=== PATIENT | male | born 1940 | race Caucasian/White ===

== ENCOUNTER → 2017-08-15 | Outpatient (CLI) | payer OTHER, BC ==
[~2017-08-15] MED LIST: NORCO 5-325 TA1 EACH PO; PENICILLIN VK500 M1 PO; PREDNISONE 20 M20 M1 PO; VENTOLIN HFA 1818 GM INH; ZPAK PO
== END ==
LOC: MRI 10:17
DX: M51.27 Other intervertebral disc displacement, lumbosacral region (principal); M51.26 Other intervertebral disc displacement, lumbar region; M47.896 Other spondylosis, lumbar region; M48.07 Spinal stenosis, lumbosacral region; R53.1 Weakness

== ENCOUNTER → 2017-08-22 | Outpatient (CLI) | payer OTHER, BC ==
[~2017-08-22] VITALS: Ht 180.3 cm; Wt 64.9 kg
[~2017-08-22] MED LIST changes: +GABAPENTIN 100100 MG PO
--- NOTE | ~2017-08-22 | HPC ---
[facility] [place] [address] PAIN MANAGEMENT CONSULTATION Name: RANDELL BOO Room #: REG SOULEYMANE McdowellTeofiloTejalTeofilo#: [id number] Admission: 08/22/17 Attend Phys: Tommy Luna DO Discharge: Date of : 40 Report #: [id number] THIS REPORT FOR: //name// CC: Tommy Waters MD DATE OF SERVICE: 08/22/2017 CHIEF COMPLAINT: Low back pain, right lower extremity pain and paresthesias. HISTORY OF PRESENT ILLNESS: As you know, the patient is a 76-year-old male who began experiencing right low back pain, right lower extremity pain with paresthesias, presented on 08/09/2017. The patient denies specific injury or trauma that may have led to symptom development. The patient states that he was in his normal state of health on 08/09/2017 where he began to experience increasing low back pain, which then began to radiate down the leg. The patient sought evaluation through his primary care physician, Dr. Ventura Waters, who referred the patient out for imaging studies as the patient was indicating not only he has increasing pain, but also a significant weight loss over a period of time without attempting to lose weight. There was concern the patient may have metastatic disease. Imaging did show no metastatic disease, but did reveal a disk protrusion at L5-S1 with impingement upon the left exiting L5 nerve root. The findings were such that the patient was then referred to our clinic for evaluation to address his 10/10 pain. The patient states that he is unable to walk or do his daily activities due to ongoing pain issues. The patient today, describes the pain as burning, shooting, cramping, aching, crushing, pulling, gnawing, throbbing, sharp, stabbing, tender, numbness and tingling. He states his pain is continuous, but with rhythmic increases in pain. He places pain score 10/10, daily average at 10/10, worst pain has been 10/10. The patient states standing, walking or doing any activities exacerbate symptoms, change in position tends to improve pain. The patient has been referred to our service due to inability to ambulate secondary to lumbar radiculopathy and the displacement of the lumbar intervertebral disk at the L5-S1 level. PAST MEDICAL HISTORY: None. PAST SURGICAL HISTORY: None. SOCIAL HISTORY: The patient denies tobacco, alcohol, IV or illicit drug use. He is retired, retired years ago. He is not receiving workmen's compensation nor is he trying to obtain disability benefits. He is not in litigation in regards to his pain. The patient indicates he is the sole provider to his who is disabled due to illnesses. He is unaccompanied at today's visit. [address] [address] PAIN MANAGEMENT CONSULTATION Name: RANDELL BOO Frieda Room #: REG ROXIJerry Douglas#: [id number] Admission: 08/22/17 Attend Phys: Tommy Luna DO Discharge: Date of : 40 Report #: [id number] REVIEW OF SYSTEMS: Positive for weight loss, decrease in appetite, fatigue and weakness, wearing corrective eyewear, sore throat, voice changes, shortness of breath with walking or lying flat, asthma, wheezing, loss of appetite, changes in bowel movements, nausea, frequent urination, nocturia, change of force or stream urination, incontinence and dribbling to urine, numbness and tingling sensations, history of transient ischemic attack, depression, low back pain and lower extremity pain. All other review of systems negative per 12-point review of systems, and those listed in history of present illness. Pain impact score 60 out of 70 indicating severe near complete interference of daily activities secondary to pain. ALLERGIES: NO KNOWN DRUG ALLERGIES. CURRENT MEDICATIONS: Gabapentin 100 mg t.i.d., hydrocodone 5/325 one tab every 4 hours p.r.n. for pain. IMAGING: MRI lumbar spine obtained 08/15/2017 shows at L4-L5 circumferential disk bulge, slight posterior paracentral disk protrusion, diffuse osteophyte, severe ligamentum flavum hypertrophy, severe facet hypertrophy, thecal sac is reduced to 8 mm. Foraminal tapering noted with no obvious root impingement at L5-S1, diffuse disk bulge, small extrusion towards the left neural foramen causing left foraminal stenosis, facet hypertrophy, ligamentum flavum hypertrophy. There appears to be impingement upon the left L5 nerve root. PQRS: The patient has osteoarthritis. No rheumatoid arthritis. He is placing current pain score 10/10. He is not a fall risk, has not had a fall in the last 3 months. He is not on blood thinners. He is not treated for hypertension. He is not on any opioids. He has a low risk assessment for opioid dependency. His functional assessment pain impact score 60/70 indicating severe interference near complete. PHYSICAL EXAMINATION: VITAL SIGNS: Blood pressure 99/66, pulse 72, respiratory rate 16, unlabored. The patient is 98% on room air. Height 5 feet 11 inches tall, weight 143 pounds, BMI calculated 20.0. GENERAL: Well-developed, well-nourished, well-hydrated 76-year-old male who appears his stated age. He is placing current pain score 10/10. HEENT: He is deemed a good historian. LUNGS: Clear. No wheeze, rhonchi or rales. CARDIOVASCULAR: Regular. No appreciable gallop or rub. ABDOMEN: Soft, nontender, nondistended, normoactive bowel sounds. EXTREMITIES: Show no clubbing, no cyanosis, no edema. MUSCULOSKELETAL: Seated straight leg raising positive on the left. Supine straight leg raising positive on the left. Nabeel's test negative. [facility] [address] [place] [address] PAIN MANAGEMENT CONSULTATION Name: MONA BOODAMIEN Malave Room #: REG [facility].#: [id number] Admission: 08/22/17 Attend Phys: Tommy Luna DO Discharge: Date of : 40 Report #: [id number] Gaenslen's positive for axial back pain. Ankle clonus negative. Babinski is negative. Deep tendon reflexes are symmetrical, but diminished at the patella and Achilles. Gait is extremely antalgic favoring left lower extremity over right. The patient has difficulty with standing due to pain. Lumbar provocation testing is met with increased pain, but no radiation of symptoms. ASSESSMENT: 1. Symptomatic lumbar radiculopathy. 2. Displacement of lumbar intervertebral disk with radiculopathy. 3. Lumbosacral spondylosis with radiculopathy. 4. Foraminal stenosis of lumbar spine. 5. Facet arthropathy of lower lumbar spine. PLAN: 1. The patient has been referred to our service for suspected lumbar radiculopathy. Imaging of the lumbar region shows changes at the L5-S1 level consistent with the patient's lumbar radicular symptoms with L5 left lumbar distribution of pain. We discussed with the patient the findings on the MRI and how they correlate with his symptoms. We took over 25 minutes of time discussing the MRI findings and how they correlate to the symptoms. We used a plastic modeling and digital modeling to assist patient's understanding. After this very long discussion, we discussed the treatment options that are available for lumbar radicular symptoms such as the patient's presentation. We discussed physical therapy, stretching exercise, core strengthening. We discussed medication management with escalating the dose of his gabapentin, which is at extremely low dose at this time. We discussed possible addition of medication in conjunction with increasing gabapentin. We discussed epidural injections for which the patient was referred to our services and finally surgical options. After reviewing the risks and benefits of all proposed treatment options, the patient chose to undergo lumbar epidural injection under fluoroscopic guidance. The patient was advised risks and benefits of a lumbar epidural injection. These risks include but are not necessarily limited to bleeding, bruising, infection, worsening pain, no relief of pain, also risk of temporary or permanent muscle weakness, temporary or permanent nerve damage, possible paralysis and . The patient states understood and wished to proceed. 2. No medication changes made at today's visit. We discussed multiple changes possible, but made no changes today. The patient wishes to determine how the epidural works before he decides to look towards medication options. We will discuss this at followup visit. 3. The patient will return to our clinic in 3 weeks. At that time, review efficacy of today's epidural injection and determine next in a series of epidural injections might be necessary. 4. We wish to thank Dr. Waters for the referral of patient to our clinic. We [address] [place] [address] PAIN MANAGEMENT CONSULTATION Name: RANDELL BOO Room #: REG SOULEYMANE Douglas#: [id number] Admission: 08/22/17 Attend Phys: Tommy Luna DO Discharge: Date of : 40 Report #: [id number] will keep you apprised of his response to treatment as we address lumbar radicular symptoms. Again, we wish to thank you for the opportunity to see this patient in consultation. PROCEDURE NOTE: DESCRIPTION OF PROCEDURE: L5-S1 paramedian epidural steroid injection under fluoroscopic guidance. This is the first procedure of the first series that the patient is undergoing. After obtaining written consent, the patient was taken back to the fluoroscopy suite, placed in a prone position with pillow under the abdomen to decrease lumbar lordosis. The skin overlying the lumbosacral area was then prepped and draped in aseptic fashion. The L5-S1 vertebral interspace was then identified by AP fluoroscopy. The skin and subcutaneous tissue overlying the target site of injection was anesthetized with 3 mL 1% lidocaine. A 20 gauge 3-1/2 inch Tuohy needle was then advanced under fluoroscopic guidance towards the epidural space using a midline approach. The epidural space was identified using loss of resistance to air technique. After negative aspiration for heme or cerebrospinal fluid, a total of 1 mL of Omnipaque was injected. A lumbar epidurogram was confirmed using both AP and lateral fluoroscopy. After negative aspiration for heme or cerebrospinal fluid, 5 mL of a solution containing 2 mL 40 mg per mL, 80 mg total triamcinolone, 3 mL lidocaine 1% was injected in increments. Contrast spread was noted posterior epidural space. The needle was then retracted approximately half way and needle tract flushed with 1 mL of lidocaine. Needle was then removed. There were no apparent sensory or motor deficits in the lower extremity following the procedure. A sterile bandage was placed over the injection site. The heart rate, pulse, oximetry and blood pressure were continuously monitored after the procedure. There were no apparent complications. The patient tolerated the procedure well and was carefully escorted to the recovery room in stable condition. There were no apparent complications. After meeting discharge criteria, the patient was then discharged home. By: [id number] Tommy Luna DO /nt
[2017-08-22 13:28] VITALS: BP 99/66
== END | disposition home or self-care (01) ==
LOC: PAIN 07:01
DX: M51.16 Intervertebral disc disorders with radiculopathy, lumbar region (principal); M47.27 Other spondylosis with radiculopathy, lumbosacral region; M48.061 Spinal stenosis, lumbar region without neurogenic claudication; M19.90 Unspecified osteoarthritis, unspecified site; Z79.899 Other long term (current) drug therapy; J45.909 Unspecified asthma, uncomplicated; Z86.73 Personal history of transient ischemic attack (TIA), and cerebral infarction without residual deficits; F32.9 Major depressive disorder, single episode, unspecified

== ENCOUNTER → 2017-08-30 | Outpatient (CLI) | payer OTHER, BC | LOC: CAT 06:59 | DX: M47.894 Other spondylosis, thoracic region (principal); M47.896 Other spondylosis, lumbar region; R63.4 Abnormal weight loss; M25.78 Osteophyte, vertebrae ==

== ENCOUNTER → 2017-09-12 | Outpatient (CLI) | payer OTHER, BC ==
[~2017-09-12] VITALS: Ht 180.3 cm; Wt 64.4 kg
--- NOTE | ~2017-09-12 | HPC ---
[facility] [address] [place] [address] PAIN MANAGEMENT CONSULTATION Name: RANDELL BOO Room #: REG SOULEYMANE MadsenTeofilo#: [id number] Admission: 09/12/17 Attend Phys: Tommy Luna DO Discharge: Date of : 40 Report #: [id number] THIS REPORT FOR: //name// CC: Tommy Waters MD DATE OF SERVICE: 09/12/2017 CHIEF COMPLAINT: Low back pain, right lower extremity pain and paresthesias. HISTORY OF PRESENT ILLNESS: As you know, the patient is a 76-year-old male, returning in followup visit to undergo next in the series of epidural injections. The patient reports pain level of 7-8/10. States pain is burning, aching, sharp in sensation, exacerbated with standing, walking and bending, improves with medications, sitting and previous epidural injection. The patient reports 50-60% improvement in overall pain with the epidural injection provided at last visit. Unfortunately, the patient became quite active and began doing a significant amount of yard work and exacerbated his pain. He had near complete resolution of his right lower extremity pain prior to his increased activity and yard work. He was doing well until that point. He returns today in followup visit requesting to undergo second in a series of epidural injections to address ongoing pain. ALLERGIES: No known drug allergies. CURRENT MEDICATIONS: Gabapentin and hydrocodone. SOCIAL HISTORY: The patient denies tobacco, alcohol, IV or illicit drug use. He is retired, retired years ago. He is unaccompanied today. IMAGING: No new imaging available. PQRS: The patient has osteoarthritis, no rheumatoid arthritis. He is placing his current pain score at 7/10. He is not a fall risk, has not fallen in the last 3 months. He is not on blood thinners. He is not treated for hypertension. He is not on opioids. His pain impact score today is 60/70. PHYSICAL EXAMINATION: VITAL SIGNS: Blood pressure 130/68, pulse 81, respiratory rate 16, unlabored. The patient is 98% on room air. Height 5 feet 11 inches tall, weight 142 pounds and BMI calculated at 19.8. GENERAL: Well-developed, well-nourished, well-hydrated 76-year-old male appearing stated age, placing pain score somewhere between 7-8/10. HEENT: Normocephalic and atraumatic. Pupils are equal, round and reactive to light. Extraocular muscles are intact. [facility] [address] [place] [address] PAIN MANAGEMENT CONSULTATION Name: RANDELL BOO Room #: REG [facility]#: [id number] Admission: 09/12/17 Attend Phys: Tommy Luna DO Discharge: Date of : 40 Report #: [id number] EXTREMITIES: Show no clubbing, no cyanosis and no edema. MUSCULOSKELETAL: Seated straight leg raising positive on the right. Nabeel's test negative. Modified Gaenslen's positive for axial low back pain. Ankle clonus is negative. Babinski is negative. ASSESSMENT: 1. Symptomatic lumbar radiculopathy. 2. Displacement of lumbar intervertebral disk with radiculopathy. 3. Lumbosacral spondylosis with radiculopathy. 4. Foraminal stenosis of the lumbar spine. 5. Chronic intractable pain. PLAN: 1. The patient returns today in followup visit having received good benefit 50-60% improvement in overall pain with the epidural injection provided at the last visit. Unfortunately, the patient became overly active, doing things he had not done in a very long period of time and this exacerbated his symptoms. He was doing well post-procedurally with 100% resolution of his low back pain, right lower extremity pain, but now has had a 50% reduction in his overall pain level after his exacerbation of symptoms while doing excessive yard work. We have discussed this with the patient today. He requested the next in a series of epidural injections. 2. The patient was advised risks and benefits of the next in the series of epidural injection. These risks include but are not necessarily limited to bleeding, bruising, infection, worsening of pain, no relief of pain, also risk of temporary or permanent muscle weakness, temporary or permanent nerve damage, possible paralysis and . The patient states understood and wished to proceed. 2. No medication changes made at today's visit. The patient will continue current medical therapy as previously prescribed. 3. We will see the patient back in followup visit on an as needed basis for the third and final in the series of epidural injections. PROCEDURE NOTE: DESCRIPTION OF PROCEDURE: L5-S1 right paramedian epidural steroid injection under fluoroscopic guidance. This is the second procedure of the first series that the patient is undergoing. After obtaining written consent, the patient was taken back to the fluoroscopy suite, placed in a prone position with pillow under the abdomen to decrease lumbar lordosis. The skin overlying the lumbosacral area was then prepped and draped in aseptic fashion. The L5-S1 vertebral interspace was then identified by AP fluoroscopy. The skin and subcutaneous tissue overlying the target site of injection was anesthetized with 3 mL 1% lidocaine. [address] [address] PAIN MANAGEMENT CONSULTATION Name: RANDELL BOO Room #: REG SOULEYMANE Douglas#: [id number] Admission: 09/12/17 Attend Phys: Tommy Luna DO Discharge: Date of : 40 Report #: [id number] A 20-gauge 3-1/2 inch Tuohy needle was then advanced under fluoroscopic guidance towards the epidural space using a right paramedian approach. The epidural space was identified using loss of resistance to air technique. After negative aspiration for heme or cerebrospinal fluid, a total of 1 mL of Omnipaque was injected. A lumbar epidurogram was confirmed using both AP and lateral fluoroscopy. After negative aspiration for heme or cerebrospinal fluid, 5 mL of solution containing 2 mL 40 mg per mL 80 mg total triamcinolone, 3 mL of lidocaine 1% was injected in increments. Contrast spread was noted posterior epidural space. The needle was then retracted approximately half way and needle tract flushed with 1 mL of 1% lidocaine. Needle was then removed. There were no apparent sensory or motor deficits in the lower extremity following the procedure. A sterile bandage was placed over the injection site. The heart rate, pulse, oximetry and blood pressure were continuously monitored after the procedure. There were no apparent complications. The patient tolerated the procedure well and was carefully escorted to the recovery room in stable condition. There were no apparent complications. After meeting discharge criteria, the patient was then discharged home. <ELECTRONICALLY SIGNED> By: Tommy Luna DO 09/13/17 [id number] Tommy Luna DO /nt
[2017-09-12 11:06] VITALS: BP 130/68
== END | disposition home or self-care (01) ==
LOC: PAIN 06:36
DX: M51.16 Intervertebral disc disorders with radiculopathy, lumbar region (principal); M47.27 Other spondylosis with radiculopathy, lumbosacral region; M48.061 Spinal stenosis, lumbar region without neurogenic claudication; G89.29 Other chronic pain; M19.90 Unspecified osteoarthritis, unspecified site; Z98.890 Other specified postprocedural states; Z79.899 Other long term (current) drug therapy; Z79.891 Long term (current) use of opiate analgesic

== ENCOUNTER → 2018-12-07 | Outpatient (CLI) | payer OTHER, BC | LOC: MRI 09:09 | DX: M47.26 Other spondylosis with radiculopathy, lumbar region (principal); M51.16 Intervertebral disc disorders with radiculopathy, lumbar region; M51.87 Other intervertebral disc disorders, lumbosacral region; M48.061 Spinal stenosis, lumbar region without neurogenic claudication; M46.06 Spinal enthesopathy, lumbar region ==

== ENCOUNTER → 2021-05-10 | Outpatient (CLI) | payer OTHER, BC | LOC: SJCVCIMAG 13:44 | PROVIDERS: ATTEND Family Medicine | DX: I08.3 Combined rheumatic disorders of mitral, aortic and tricuspid valves (principal) ==

== ENCOUNTER → 2021-05-21 | Outpatient (CLI) | payer OTHER | LOC: CAT 12:43 | PROVIDERS: ATTEND Family Medicine | DX: Z13.6 Encounter for screening for cardiovascular disorders (principal); I25.10 Atherosclerotic heart disease of native coronary artery without angina pectoris ==

== ENCOUNTER → 2021-06-02 | Outpatient (CLI) | payer OTHER, BC | LOC: SJCVC 14:00 | PROVIDERS: ATTEND Internal Medicine | DX: I49.8 Other specified cardiac arrhythmias (principal); R06.00 Dyspnea, unspecified; E78.00 Pure hypercholesterolemia, unspecified; Z79.899 Other long term (current) drug therapy; Z13.220 Encounter for screening for lipoid disorders ==